=== PATIENT | male | born 1940 | race Caucasian/White ===

== ENCOUNTER 2021-01-24 20:27 | Observation (INO) | payer OTHER ==
[2021-01-24 21:24] LABS: BASO % 0.8 % (0-2.0); EOS % 0.8 % (0-4.5); HEMATOCRIT 37.7 % (35.4-49); HEMOGLOBIN 13.1 GM/dL (11.7-16.9); LYMPH % 8.8 % (8-40); MCH 31.9 pg (25.7-33.7); MCHC 34.7 g/dl (32.0-35.9); MEAN PLT VOLUME 6.5 fl (7.5-11.1); NEUT % 82.6 % (42.8-82.8); PLATELET COUNT 222 10^3/uL (134-434); RDW 12.8 % (11.9-15.9); WHITE BLOOD COUNT 10.2 K/mm3 (4.0-10.0)
[2021-01-24 21:46] LABS: CHLORIDE 106 mmol/L (98-107); SODIUM 139 mmol/L (136-145)
[2021-01-24 21:47] LABS: CALCIUM 9.3 mg/dL (8.5-10.1)
[2021-01-24 21:48] LABS: ALBUMIN 4.3 g/dl (3.4-5.0); ANION GAP 8 MMOL/L (8-16); BLOOD UREA NITROGEN 33.3 mg/dL (7-18); CO2 24 mmol/L (21-32); GLUCOSE,RANDOM 167 mg/dL (74-106)
[2021-01-24 21:51] LABS: CREATININE 1.4 mg/dL (0.55-1.3); SGOT/AST 14 U/L (15-37); SGPT/ALT 31 U/L (13-61)
[2021-01-24 21:52] LABS: BILIRUBIN,TOTAL 0.7 mg/dL (0.2-1)
[2021-01-24 21:53] LABS: TOT PROT 7.5 g/dl (6.4-8.2)
[2021-01-24 21:54] LABS: ALK PHOS 62 U/L (45-117); N-TERMINAL BNP 313.2 pg/ml (5-450)
[2021-01-25 02:34] LABS: URINE APPEARANCE CLEAR; URINE BILIRUBIN NEGATIVE (NEGATIVE); URINE COLOR YELLOW; URINE GLUCOSE (UA) NEGATIVE (NEGATIVE); URINE KETONE TRACE (NEGATIVE); URINE LEUK ESTERASE NEGATIVE (NEGATIVE); URINE NITRITE NEGATIVE (NEGATIVE); URINE PROTEIN NEGATIVE (NEGATIVE); URINE UROBILINOGEN 0.2 mg/dL (0.2-1.0)
[2021-01-25] MEDS ORDERED: AZITHROMYCIN IVPB 500 MG in DEXTROSE 5%-WATER - 250 ML IVPB ONE (03:02)
[2021-01-25] MEDS ORDERED: CEFTRIAXONE 1 GM in DEXTROSE 5%-WATER - 50 ML IVPB ONE (03:02)
[2021-01-25] MEDS ORDERED: AZITHROMYCIN IVPB 500 MG/250 ML BAG IVPB ONE (03:27)
[2021-01-25] MEDS ORDERED: CEFTRIAXONE 1 GM/50 ML BAG ONE (03:27)
[2021-01-25] MEDS ORDERED: ALBUTEROL SO4 0.083% IH SOL 2.5 MG/3 ML VIAL.NEB. NEB PRN (04:39)
[2021-01-25] MEDS ORDERED: ACETAMINOPHEN 325 MG TABLET (FP) PO PRN (04:39)
[2021-01-25 06:50] LABS: ALBUMIN 3.8 g/dl (3.4-5.0); BLOOD UREA NITROGEN 31.3 mg/dL (7-18); CALCIUM 9.3 mg/dL (8.5-10.1); MAGNESIUM 2.2 mg/dL (1.8-2.4)
[2021-01-25 06:53] LABS: CREATININE 1.2 mg/dL (0.55-1.3); PHOSPHOROUS 4.3 mg/dL (2.5-4.9)
[2021-01-25 06:55] LABS: BILIRUBIN,TOTAL 0.8 mg/dL (0.2-1); TOT PROT 7.1 g/dl (6.4-8.2)
[2021-01-25 06:58] LABS: BASO % 0.2 % (0-2.0); EOS % 0.1 % (0-4.5); HEMATOCRIT 36.9 % (35.4-49); HEMOGLOBIN 12.7 GM/dL (11.7-16.9); LYMPH % 7.5 % (8-40); MCH 32.2 pg (25.7-33.7); MCHC 34.4 g/dl (32.0-35.9); MEAN CELL VOLUME 93.8 fl (80-96); MEAN PLT VOLUME 7.1 fl (7.5-11.1); MONO % 8.5 % (3.8-10.2); NEUT % 83.7 % (42.8-82.8); PLATELET COUNT 202 10^3/uL (134-434); RBC 3.93 M/mm3 (4.00-5.60); RDW 12.8 % (11.9-15.9); WHITE BLOOD COUNT 12.9 K/mm3 (4.0-10.0)
[2021-01-25] MEDS ORDERED: predniSONE 20 MG TABLET (UD) ONE (11:26)
[2021-01-25] MEDS ORDERED: ENOXAPARIN NA (PORCINE) 40 MG/0.4 ML DISP.SYRIN SQ ONE (11:26)
[2021-01-25] MEDS ORDERED: PANTOPRAZOLE 40 MG TABLET ONE (11:26)
[2021-01-25] MEDS: PANTOPRAZOLE 40 MG TABLET PO SCH (11:27)
[2021-01-25] MEDS: ENOXAPARIN NA (PORCINE) 40 MG/0.4 ML DISP.SYRIN SQ SCH (11:27)
[2021-01-25] MEDS: predniSONE 20 MG TABLET (UD) PO SCH (11:27)
[2021-01-25 11:55] VITALS: BMI 32.1
[2021-01-26] MEDS: ENOXAPARIN NA (PORCINE) 40 MG/0.4 ML DISP.SYRIN SQ SCH (09:55)
[2021-01-26] MEDS: predniSONE 20 MG TABLET (UD) PO SCH (09:55)
[2021-01-26] MEDS: PANTOPRAZOLE 40 MG TABLET PO SCH (09:55)
[2021-01-26] MEDS ORDERED: AMOX TR/POT CLAV 875MG/125MG TABLETS (FP) PO SCH (10:07)
[2021-01-26 13:41] VITALS: BP 141/68; PULSE 76; TEMP 98.2
== END 2021-01-26 17:20 | disposition home or self-care (01) ==
LOC: JER 20:27 → JERBED 01-25 02:43 → INTOOBSV 01-25 02:43 → UNDOADMOB 01-25 02:43 → JERBED 01-25 11:32 → J8W 01-25 11:32
PROVIDERS: ADMIT Internal Medicine; ATTEND Nurse Practitioner Family
PROC: 3E03329 Introduction of Other Anti-infective into Peripheral Vein, Percutaneous Approach (ICD-10-PCS; principal; 2021-01-25)
PROC: 3E023GC Introduction of Other Therapeutic Substance into Muscle, Percutaneous Approach (ICD-10-PCS; 2021-01-25)
DX: J18.9 Pneumonia, unspecified organism (principal); J98.11 Atelectasis; R00.0 Tachycardia, unspecified; E66.9 Obesity, unspecified; Z68.32 Body mass index [BMI] 32.0-32.9, adult; R60.0 Localized edema; R53.1 Weakness; M54.59 Other low back pain; G89.29 Other chronic pain; I10 Essential (primary) hypertension; R42 Dizziness and giddiness; J20.9 Acute bronchitis, unspecified; Z23 Encounter for immunization; R06.00 Dyspnea, unspecified; B34.9 Viral infection, unspecified
CPT/HCPCS: 36415; 71045-TC-FY; 71250-TC; 76775-TC; 80053; 80061; 81003; 82550; 83036; 83735; 83880; 84100; 84443; 84484; 85025; 85379; 87086; 87804; 87899; 93005; 93010; 96365; 96368; 96372; 97116-GP; 97161-GP; 99285-25; C9803; G0378; U0003; U0005

== ENCOUNTER 2021-06-21 11:40 | Observation (INO) | payer OTHER ==
[2021-06-21 14:12] LABS: BASO % 0.3 % (0-2.0); EOS % 1.4 % (0-4.5); HEMATOCRIT 36.3 % (35.4-49); HEMOGLOBIN 12.7 GM/dL (11.7-16.9); MCHC 34.9 g/dl (32.0-35.9); MEAN CELL VOLUME 88.8 fl (80-96); MEAN PLT VOLUME 6.5 fl (7.5-11.1); MONO % 8.3 % (3.8-10.2); PLATELET COUNT 245 10^3/uL (134-434); RBC 4.09 M/mm3 (4.00-5.60); RDW 13.1 % (11.9-15.9); WHITE BLOOD COUNT 9.6 K/mm3 (4.0-10.0)
[2021-06-21 14:38] LABS: ALBUMIN 4.2 g/dl (3.4-5.0); BLOOD UREA NITROGEN 21.8 mg/dL (7-18); CALCIUM 8.9 mg/dL (8.5-10.1)
[2021-06-21 14:41] LABS: CREATININE 1.1 mg/dL (0.55-1.3)
[2021-06-21 14:43] LABS: BILIRUBIN,TOTAL 0.7 mg/dL (0.2-1); TOT PROT 6.6 g/dl (6.4-8.2)
[2021-06-21 14:46] LABS: N-TERMINAL BNP 1515.6 pg/ml (5-450)
[2021-06-21] MEDS ORDERED: CEFTRIAXONE 1 GM in DEXTROSE 5%-WATER - 100 ML IVPB ONE (16:39)
[2021-06-21] MEDS ORDERED: AZITHROMYCIN IVPB 500 MG in DEXTROSE 5%-WATER - 250 ML IVPB ONE (16:39)
[2021-06-21] MEDS ORDERED: CEFTRIAXONE 1 GM/50 ML BAG ONE (16:52)
[2021-06-21] MEDS ORDERED: AZITHROMYCIN IVPB 500 MG/250 ML BAG IVPB ONE (17:14)
[2021-06-21] MEDS ORDERED: FAMOTIDINE 20 MG TABLET PO ONE (18:27)
[2021-06-21] MEDS ORDERED: MAG HYDROX/AL HYDROX/SIMETH 30 ML UNIT-DOSE CUP PO ONE (18:28)
[2021-06-21] MEDS ORDERED: FAMOTIDINE 10 MG/ML VIAL IVPB ONE (19:09)
[2021-06-21] MEDS ORDERED: MAG HYDROX/AL HYDROX/SIMETH 30 ML UNIT-DOSE CUP ONE (19:09)
[2021-06-21] MEDS ORDERED: FAMOTIDINE 20 MG TABLET ONE (19:11)
[2021-06-21] MEDS: ATORVASTATIN CA 10 MG TABLET (FP) PO SCH (22:47)
[2021-06-21] MEDS ORDERED: ATORVASTATIN CA 10 MG TABLET (FP) ONE (22:48)
[2021-06-22 06:35] LABS: BASO % 0.8 % (0-2.0); EOS % 2.8 % (0-4.5); HEMATOCRIT 32.5 % (35.4-49); HEMOGLOBIN 11.5 GM/dL (11.7-16.9); LYMPH % 15.9 % (8-40); MCH 31.3 pg (25.7-33.7); MCHC 35.3 g/dl (32.0-35.9); MEAN CELL VOLUME 88.5 fl (80-96); MEAN PLT VOLUME 6.6 fl (7.5-11.1); MONO % 8.8 % (3.8-10.2); NEUT % 71.7 % (42.8-82.8); PLATELET COUNT 228 10^3/uL (134-434); RBC 3.68 M/mm3 (4.00-5.60); RDW 13.3 % (11.9-15.9); WHITE BLOOD COUNT 7.2 K/mm3 (4.0-10.0)
[2021-06-22 07:29] LABS: ALBUMIN 3.6 g/dl (3.4-5.0); CALCIUM 8.9 mg/dL (8.5-10.1)
[2021-06-22 07:30] LABS: BLOOD UREA NITROGEN 17.5 mg/dL (7-18)
[2021-06-22 07:32] LABS: CREATININE 1.1 mg/dL (0.55-1.3)
[2021-06-22 07:34] LABS: TOT PROT 6.1 g/dl (6.4-8.2)
[2021-06-22 07:36] LABS: BILIRUBIN,TOTAL 1.6 mg/dL (0.2-1)
[2021-06-22] MEDS ORDERED: CEFTRIAXONE 1 GM/50 ML BAG ONE (09:23)
[2021-06-22] MEDS ORDERED: ENOXAPARIN NA (PORCINE) 40 MG/0.4 ML DISP.SYRIN SQ ONE (09:23)
[2021-06-22] MEDS ORDERED: HYDROCHLOROTHIAZIDE 25 MG TABLET (FP) ONE (09:23)
[2021-06-22] MEDS ORDERED: AZITHROMYCIN IVPB 500 MG/250 ML BAG IVPB ONE (09:24)
[2021-06-22] MEDS ORDERED: PATIENT'S OWN MEDICATION (NON-FORMULARY) (Enalapril/Hydrochlorothiazide [Vaseretic 10-25 M PO SCH (10:00)
[2021-06-22] MEDS: HYDROCHLOROTHIAZIDE 25 MG TABLET (FP) PO SCH (10:00)
[2021-06-22] MEDS: CEFTRIAXONE 1 GM in DEXTROSE 5%-WATER - 50 ML IVPB SCH (10:15)
[2021-06-22] MEDS: ENOXAPARIN NA (PORCINE) 40 MG/0.4 ML DISP.SYRIN SQ SCH (10:15)
[2021-06-22] MEDS: ENALAPRIL MALEATE 10 MG TABLET PO SCH (10:15)
[2021-06-22] MEDS ORDERED: ACETAMINOPHEN 325 MG TABLET (FP) PO PRN ×2 (10:22→11:11)
[2021-06-22] MEDS: AZITHROMYCIN IVPB 500 MG/250 ML BAG IVPB SCH (10:59)
[2021-06-22 15:59] VITALS: BMI 31.3
[2021-06-22] MEDS: ATORVASTATIN CA 10 MG TABLET (FP) PO SCH (21:15)
[2021-06-23 08:37] LABS: BASO % 0.9 % (0-2.0); EOS % 4.5 % (0-4.5); HEMOGLOBIN 12.5 GM/dL (11.7-16.9); LYMPH % 19.2 % (8-40); MCH 31.5 pg (25.7-33.7); MCHC 35.7 g/dl (32.0-35.9); MEAN CELL VOLUME 88.3 fl (80-96); MEAN PLT VOLUME 6.3 fl (7.5-11.1); MONO % 11.6 % (3.8-10.2); NEUT % 63.8 % (42.8-82.8); PLATELET COUNT 233 10^3/uL (134-434); RBC 3.97 M/mm3 (4.00-5.60); RDW 12.9 % (11.9-15.9); WHITE BLOOD COUNT 5.5 K/mm3 (4.0-10.0)
[2021-06-23 08:59] LABS: BLOOD UREA NITROGEN 19.2 mg/dL (7-18)
[2021-06-23 09:02] LABS: CREATININE 1.2 mg/dL (0.55-1.3)
[2021-06-23] MEDS ORDERED: DEXTROSE 5%-WATER - 50 ML IVPB ONE (09:05)
[2021-06-23] MEDS ORDERED: cefTRIAXone SODIUM 1 GM VIAL ONE (09:05)
[2021-06-23] MEDS: CEFTRIAXONE 1 GM in DEXTROSE 5%-WATER - 50 ML IVPB SCH (09:48)
[2021-06-23] MEDS: ENOXAPARIN NA (PORCINE) 40 MG/0.4 ML DISP.SYRIN SQ SCH (09:48)
[2021-06-23] MEDS: HYDROCHLOROTHIAZIDE 25 MG TABLET (FP) PO SCH (09:48)
[2021-06-23] MEDS: ENALAPRIL MALEATE 10 MG TABLET PO SCH (09:49)
[2021-06-23] MEDS: AZITHROMYCIN IVPB 500 MG/250 ML BAG IVPB SCH (09:49)
[2021-06-23 14:22] VITALS: BP 115/52; PULSE 69; TEMP 98.7
== END 2021-06-23 18:38 | disposition home or self-care (01) ==
LOC: JER 11:40 → JERBED 16:56 → J8W 06-22 14:47
PROVIDERS: ADMIT Internal Medicine; ATTEND Internal Medicine
PROC: 3E03329 Introduction of Other Anti-infective into Peripheral Vein, Percutaneous Approach (ICD-10-PCS; principal; 2021-06-21)
PROC: 3E023GC Introduction of Other Therapeutic Substance into Muscle, Percutaneous Approach (ICD-10-PCS; 2021-06-21)
DX: J18.8 Other pneumonia, unspecified organism (principal); R42 Dizziness and giddiness; I10 Essential (primary) hypertension; E66.9 Obesity, unspecified; Z68.30 Body mass index [BMI] 30.0-30.9, adult; Z29.8 Encounter for other specified prophylactic measures; R22.40 Localized swelling, mass and lump, unspecified lower limb
CPT/HCPCS: 36415; 71046-TC-FY; 80048; 80053; 83690; 83735; 83880; 84484; 85025; 87070; 87186; 87205; 87899; 93005; 93010; 93970-TC; 96365; 96367; 96368; 96372; 99285-25; C9803-CS; G0378; U0003; U0005